=== PATIENT | female | born 1980 | race Caucasian/White ===

== ENCOUNTER 2017-10-09 22:22 | Emergency (ER) | END 2017-10-10 02:56 | disposition home or self-care (01) ==

== ENCOUNTER 2019-07-15 23:07 | Emergency (ER) | payer MEDICAID ==
[~2019-07-15] VITALS: Ht 149.9 cm; Wt 62.9 kg
[~2019-07-15 23:07] MED LIST: ACET500C5 PO; IBUP-1542 PO; OSEL75CA23 PO; [UNRECOGNIZED DRUG - OTHER] PO
[2019-07-15 23:10] VITALS: Ht 149.9 cm; Wt 62.9 kg
== END 2019-07-16 02:22 | disposition home or self-care (01) ==
LOC: FTE 23:07
DX: L98.9 Disorder of the skin and subcutaneous tissue, unspecified (principal)
CPT/HCPCS: 99282